=== PATIENT | male | born 1990 | race Caucasian/White ===

== ENCOUNTER 2018-09-19 19:24 | Emergency (ER) | payer BC ==
[2018-09-19] MEDS ORDERED: Sodium Chloride 0.9% 10 ML Syringe FLUSH PRN (19:50)
[2018-09-19] MEDS ORDERED: Ondansetron 4 MG/2 ML SDV IVPUSH ONE (19:50)
[2018-09-19] MEDS ORDERED: Sodium Chloride 0.9% 1,000 ML IV STA (19:50)
[2018-09-19] MEDS ORDERED: methylPREDNISolone Sodium Succinate 125 MG/2 ML SDV IVPUSH ONE (19:51)
[2018-09-19] MEDS ORDERED: HYDROmorphone 1 MG/ML Syringe IVPUSH ONE (19:51)
[2018-09-19] MEDS ORDERED: Sodium Chloride 0.9% 1,000 ML IV ONE (21:02)
--- NOTE | 2018-09-19 21:12 | EDM.PDOC ---
ED HPI GENERAL MEDICAL PROBLEM - General Chief Complaint: Gastrointestinal Problem Stated Complaint: possible dehydration Time Seen by Provider: 09/19/18 19:35 Source of Information: Reports: Patient, Family History Limitations: Reports: No Limitations - History of Present Illness INITIAL COMMENTS - FREE TEXT/NARRATIVE: The patient presents with abdominal pain, nausea, vomiting and diarrhea. He was recently diagnosed with ulcerative colitis. Two week ago he had a CT and last week he had a colonscopy. He said the contrast for the CT and bowel prep for the colonoscopy made things worse. He is on steroids but he feels he is dehydrated. He is trying to push fluids but he still has the diarrhea. He has a low grade temp and generalized abdominal pain. He has no chest pain or shortness of breath. He says he had a 20 pound weight loss the last 6 days. Onset: Gradual Duration: Week(s): Location: Reports: Abdomen Quality: Reports: Ache Severity: Moderate Improves with: Reports: None Worsens with: Reports: None Associated Symptoms: Reports: Fever/Chills, Nausea/Vomiting. Denies: Chest Pain , Cough, Headaches, Shortness of Breath - Related Data Allergies Allergy/AdvReac Type Severity Reaction Status Date / Time cefaclor Allergy Cannot Verified 09/19/18 19:37 Remember pneumococcal vaccine Allergy Redness Verified 09/19/18 19:37 Home Meds: Home Meds Budesonide [Entocort EC] 3 mg PO DAILY 09/19/18 [History] Ondansetron [Zofran ODT] 4 mg PO Q6H PRN #20 tab.dis 09/19/18 [Rx] Potassium Chloride 20 meq PO DAILY #30 tablet.er 09/19/18 [Rx] Past Medical History Gastrointestinal History: Reports: Other (See Below) Other Gastrointestinal History: ulcerative colitis - Past Surgical History GI Surgical History: Reports: Colonoscopy Social & Family History - Tobacco Use Smoking Status *Q: Former Smoker Used Tobacco, but Quit: Yes Month/Year Tobacco Last Used: September - Caffeine Use Caffeine Use: Reports: None - Recreational Drug Use Recreational Drug Use: No ED ROS GENERAL - Review of Systems Review Of Systems: See Below Constitutional: Reports: No Symptoms HEENT: Reports: No Symptoms Respiratory: Reports: No Symptoms Cardiovascular: Reports: No Symptoms Endocrine: Reports: No Symptoms GI/Abdominal: Reports: Abdominal Pain, Diarrhea, Nausea, Vomiting : Reports: No Symptoms Musculoskeletal: Reports: No Symptoms Skin: Reports: No Symptoms ED EXAM, GI/ABD - Physical Exam Exam: See Below Exam Limited By: No Limitations General Appearance: Alert, No Apparent Distress Ears: Normal External Exam Nose: Normal Inspection Head: Atraumatic, Normocephalic Neck: Normal Inspection Respiratory/Chest: No Respiratory Distress, Lungs Clear, Normal Breath Sounds Cardiovascular: Regular Rate, Rhythm, No Edema, No Murmur GI/Abdominal Exam: Soft, No Organomegaly, No Mass, Tender (Generalized tenderness) Back Exam: Normal Inspection Extremities: Normal Inspection Course - Vital Signs Last Recorded V/S: Last Vital Signs Temp 98.4 F 09/19/18 19:34 Pulse 105 H 09/19/18 19:34 Resp 16 09/19/18 19:34 BP 134/73 09/19/18 19:34 Pulse Ox 96 09/19/18 19:34 Orthostatic Blood Pressure [ 112/66 Standing] Orthostatic Blood Pressure [ 116/68 Supine] - Orders/Labs/Meds Orders: Active Orders 24 hr Category Date Time Status Peripheral IV Care [RC] . DIRECTED Care 09/19/18 19:50 Active Potassium Chloride [KCl 10 MEQ in Water 100 ML] 10 meq Med 09/19/18 21:15 Active Premix Bag 1 bag IV ASDIRECTED Sodium Chloride 0.9% [Saline Flush] Med 09/19/18 19:50 Active 10 ml FLUSH ASDIRECTED PRN ED Antiemetic Medication Reflex [OM.PC] Stat Oth 09/19/18 19:51 Ordered Peripheral IV Insertion Adult [OM.PC] Stat Oth 09/19/18 19:50 Ordered Medication Orders Potassium Chloride 10 meq/ (Premix) 100 mls @ 100 mls/hr IV ASDIRECTED DARLENE Last Admin: 09/19/18 21:15 Dose: 100 mls/hr Sodium Chloride (Saline Flush) 10 ml FLUSH ASDIRECTED PRN PRN Reason: Keep Vein Open Last Admin: 09/19/18 20:24 Dose: 10 ml Labs: Laboratory Tests 09/19/18 09/19/18 09/19/18 Range/Units 20:15 20:15 21:55 WBC 13.18 H (4.23-9.07) K/mm3 RBC 4.25 L (4.63-6.08) M/mm3 Hgb 12.9 L (13.7-17.5) gm/L Hct 36.5 L (40.1-51.0) % MCV 85.9 (79.0-92.2) fl MCH 30.4 (25.7-32.2) pg MCHC 35.3 (32.2-35.5) g/dl RDW Std Deviation 38.8 (35.1-43.9) fL Plt Count 410 H (163-337) K/mm3 MPV 8.3 L (9.4-12.3) fl Neut % (Auto) 64.5 (34.0-67.9) % Lymph % (Auto) 13.0 L (21.8-53.1) % [place] % (Auto) 19.2 H (5.3-12.2) % Eos % (Auto) 1.7 (0.8-7.0) Baso % (Auto) 0.2 (0.1-1.2) % Neut # (Auto) 8.49 H (1.78-5.38) K/mm3 Lymph # (Auto) 1.71 (1.32-3.57) K/mm3 [place] # (Auto) 2.53 H (0.30-0.82) K/mm3 Eos # (Auto) 0.23 (0.04-0.54) K/mm3 Baso # (Auto) 0.03 (0.01-0.08) K/mm3 Manual Slide Review Abnormal smear Sodium 132 L (136-145) mEq/L Potassium 2.8 L (3.5-5.1) mEq/L Chloride 93 L (98-107) mEq/L Carbon Dioxide 27 (21-32) mEq/L Anion Gap 14.8 (5-15) BUN 10 (7-18) mg/dL Creatinine 1.1 (0.7-1.3) mg/dL Est Cr Clr Drug Dosing 97.59 mL/min Estimated GFR (MDRD) > 60 (>60) mL/min BUN/Creatinine Ratio 9.1 L (14-18) Glucose 104 (74-106) mg/dL Calcium 8.6 (8.5-10.1) mg/dL Total Bilirubin 0.5 (0.2-1.0) mg/dL AST 24 (15-37) U/L ALT 30 (16-63) U/L Alkaline Phosphatase 63 (46-116) U/L C-Reactive Protein 5.2 H* (<1.0) mg/dL Total Protein 6.3 L (6.4-8.2) g/dl Albumin 2.3 L (3.4-5.0) g/dl Globulin 4.0 gm/dL Albumin/Globulin Ratio 0.6 L (1-2) Lipase 47 L (73-393) U/L Urine Color Yellow (Yellow) Urine Appearance Clear (Clear) Urine pH 6.5 (5.0-8.0) Ur Specific [place] 1.010 (1.005-1.030) Urine Protein Trace H (Negative) Urine Glucose (UA) Negative (Negative) Urine Ketones 2+ H (Negative) Urine Occult Blood 2+ H (Negative) Urine Nitrite Negative (Negative) Urine Bilirubin Negative (Negative) Urine Urobilinogen 0.2 (0.2-1.0) Ur Leukocyte Esterase Negative (Negative) Urine RBC 5-10 H (0-5) /hpf Urine WBC 0-5 (0-5) /hpf Ur Epithelial Cells 0-5 (0-5) /hpf Urine Bacteria Few (FEW) /hpf Urine Mucus Not seen (FEW) /hpf Meds: Medications Generic Name Dose Route Start Last Admin Trade Name Freq PRN Reason Stop Dose Admin Potassium Chloride 10 meq/ 100 mls @ 100 mls/hr 09/19/18 21:15 09/19/18 21:15 Premix IV 100 mls/hr ASDIRECTED DARLENE Administration Sodium Chloride 10 ml 09/19/18 19:50 09/19/18 20:24 Saline Flush FLUSH 10 ml ASDIRECTED PRN Administration Keep Vein Open Discontinued Medications Generic Name Dose Route Start Last Admin Trade Name Freq PRN Reason Stop Dose Admin Hydromorphone HCl 1 mg 09/19/18 19:51 09/19/18 20:21 Dilaudid IVPUSH 09/19/18 19:52 1 mg ONETIME ONE Administration Sodium Chloride 1,000 mls @ 1,000 mls/hr 09/19/18 19:50 09/19/18 20:24 Normal Saline IV 09/19/18 20:49 1,000 mls/hr .BOLUS STA Administration Sodium Chloride 1,000 mls @ 1,000 mls/hr 09/19/18 21:02 09/19/18 21:15 Normal Saline IV 09/19/18 22:01 1,000 mls/hr ONETIME ONE Administration Methylprednisolone Sodium Succinate 125 mg 09/19/18 19:51 09/19/18 20:24 Solu-Medrol IVPUSH 09/19/18 19:52 125 mg ONETIME ONE Administration Ondansetron HCl 4 mg 09/19/18 19:50 09/19/18 20:20 Zofran IVPUSH 09/19/18 19:51 4 mg ONETIME ONE Administration - Re-Assessments/Exams Free Text/Narrative Re-Assessment/Exam: 09/19/18 21:13 I ordered an IV NS 1L bolus, zofran 4mg IV, dilaudid 1mg IV, labs and UA. His WBC is elevated at 13.18. His Hgb is low at 12.9. His Na is low at 132. His K is low at 2.8. I ordered another liter of fluid and a potassium rider of 10meq. His lipase is low at 47. 09/19/18 22:48 His UA shows no UTI. He is dehydrated. I let the second liter go in. I will get him on some potassium and some zofran for nausea. Departure - Departure Time of Disposition: 22:50 Disposition: Home, Self-Care 01 Condition: Good Clinical Impression: Dehydration Ulcerative colitis Qualifiers: Ulcerative colitis location: unspecified ulcerative colitis location Digestive disease complication type: without complication Qualified Code(s): K51.90 - Ulcerative colitis, unspecified, without complications Nausea & vomiting Qualifiers: Vomiting type: unspecified Vomiting Intractability: non-intractable Qualified Code(s): R11.2 - Nausea with vomiting, unspecified Diarrhea Qualifiers: Diarrhea type: unspecified type Qualified Code(s): R19.7 - Diarrhea, unspecified - Discharge Information *PRESCRIPTION DRUG MONITORING PROGRAM REVIEWED*: Not Applicable *COPY OF PRESCRIPTION DRUG MONITORING REPORT IN PATIENT NIKITA: Not Applicable Prescriptions: Ondansetron [Zofran ODT] 4 mg PO Q6H PRN #20 tab.dis PRN Reason: Nausea\vomiting Potassium Chloride 20 meq PO DAILY #30 tablet.er Referrals: Ora Catalan NP [Primary Care Provider] - 1 Week Forms: ED Department Discharge Additional Instructions: Drink plenty of fluids. Take your medication as prescribed. Your potassium was low so take potassium 20meq daily. Take the zofran as needed for nausea and vomiting. Follow up with your doctor. Please return if you are worse. - My Orders Last 24 Hours: My Active Orders 09/19/18 19:50 Peripheral IV Care [RC] . DIRECTED Sodium Chloride 0.9% [Saline Flush] 10 ml FLUSH ASDIRECTED PRN Peripheral IV Insertion Adult [OM.PC] Stat 09/19/18 19:51 ED Antiemetic Medication Reflex [OM.PC] Stat 09/19/18 21:15 Potassium Chloride [KCl 10 MEQ in Water 100 ML] 10 meq Premix Bag 1 bag IV ASDIRECTED - Assessment/Plan Last 24 Hours: My Active Orders 09/19/18 19:50 Peripheral IV Care [RC] . DIRECTED Sodium Chloride 0.9% [Saline Flush] 10 ml FLUSH ASDIRECTED PRN Peripheral IV Insertion Adult [OM.PC] Stat 09/19/18 19:51 ED Antiemetic Medication Reflex [OM.PC] Stat 09/19/18 21:15 Potassium Chloride [KCl 10 MEQ in Water 100 ML] 10 meq Premix Bag 1 bag IV ASDIRECTED
[2018-09-19] MEDS ORDERED: Potassium Chloride 10 MEQ in Premix Bag 1 BAG IV SCH (21:15)
== END 2018-09-19 23:21 | disposition home or self-care (01) ==
LOC: JD.ED 19:24
DX: K51.90 Ulcerative colitis, unspecified, without complications (principal); E86.0 Dehydration; Z88.7 Allergy status to serum and vaccine; Z88.1 Allergy status to other antibiotic agents; Z87.891 Personal history of nicotine dependence
CPT/HCPCS: 36415; 80053; 81001; 83690; 85025; 86140; 96365; 96375; 99284; J1170; J2405; J2930; J3480; J7040

== ENCOUNTER → 2021-02-03 | Day surgery (SDC) | payer BC ==
[~2021-02-03] MED LIST: Acetaminophen 325 MG Tab PO SCH; HYDROmorphone 0.5 MG/0.5 ML Syringe IVPUSH PRN; Ketamine 500 mg/10 ML MDV ONE; Ketorolac 30 MG/ML SDV ONE; Lactated Ringers 1,000 ML IV SCH; Lactated Ringers 1,000 ML ONE; Lidocaine 1% 4 ML ONE; Lidocaine 1%/Sod Bicarbonate in NS 8.4% 1 ML Syringe IDERM PRN; Midazolam 1 MG/ML 2 ML SDV ONE; Morphine 8 MG, EPINEPHrine 0.3 MG, Cefuroxime 750 MG, Ketorolac 30 MG, Sodium Chloride ... PRN; Ondansetron 4 MG/2 ML SDV IVPUSH PRN; Ondansetron 4 MG/2 ML SDV ONE; Pregabalin 25 MG Cap PO SCH; Propofol 200 MG/20 ML SDV ONE; Sodium Chloride 0.9% 10 ML Syringe FLUSH PRN; Vancomycin 1 GM SDV ONE; ceFAZolin 1 GM Vial ONE; fentaNYL 100 MCG/2 ML SDV IVPUSH PRN; fentaNYL 100 MCG/2 ML SDV ONE; oxyCODONE 5 MG Tab PO STA; oxyCODONE ER 10 MG TAB.ER PO SCH
--- NOTE | 2021-02-03 09:10 | PCM.PREANE ---
Preanesthetic Assessment - Procedure Proposed Procedure: right total hip arthorplasty - Anesthesia/Transfusion/Family Hx Anesthesia History: Prior Anesthesia Without Reaction Family History of Anesthesia Reaction: No Transfusion History: Prior Transfusion Without Reaction Intubation History: Unknown - Review of Systems General: Other (sinus col ) Cardiovascular: No Symptoms Gastrointestinal: No Symptoms Neurological: No Symptoms, Other (TBI history problems with short term memory 2008) - Physical Assessment NPO Status Date: 02/02/21 NPO Status Time: 11:59 Vital Signs: Last Vital Signs Temp 36.6 C 02/03/21 08:05 Pulse 98 02/03/21 08:05 Resp 16 02/03/21 08:05 BP 146/71 H 02/03/21 08:05 Pulse Ox 96 02/03/21 08:05 Height: 1.75 m Weight: 104.4 kg ASA Class: 3 Mental Status: Alert & Oriented x3 Airway Class: Mallampati = 2 Dentition: Reports: Broken Tooth/Teeth, Missing Tooth/Teeth (very bad dentition, many teeth appear decayed, states that none are loose ) Thyro-Mental Finger Breadths: 3 Mouth Opening Finger Breadths: 3 ROM/Head Extension: Full Lungs: Clear to Auscultation, Normal Respiratory Effort Cardiovascular: Regular Rate, Regular Rhythm - Allergies Allergies/Adverse Reactions: Allergies Allergy/AdvReac Type Severity Reaction Status Date / Time cefaclor [From Ceclor] Allergy Rash Verified 02/03/21 08:22 - Blood Blood Available: No - Anesthesia Plan Pre-Op Medication Ordered: None - Acknowledgements Anesthesia Type Planned: Spinal Pt an Appropriate Candidate for the Planned Anesthesia: Yes Alternatives and Risks of Anesthesia Discussed w Pt/Guardian: Yes Pt/Guardian Understands and Agrees with Anesthesia Plan: Yes PreAnesthesia Questionnaire HEENT History: Reports: Impaired Vision Cardiovascular History: Reports: None Respiratory History: Reports: None Gastrointestinal History: Reports: GERD, Other (See Below) Other Gastrointestinal History: ulcerative colitis Genitourinary History: Reports: None ALGOLOGY TEACHER History: Reports: None Musculoskeletal History: Reports: None Neurological History: Reports: Seizure, Other (See Below) Other Neuro History: TBI Psychiatric History: Reports: None Endocrine/Metabolic History: Reports: None Hematologic History: Reports: None Immunologic History: Reports: None Oncologic (Cancer) History: Reports: None Dermatologic History: Reports: None - Infectious Disease History Infectious Disease History: Reports: None - Past Surgical History Head Surgeries/Procedures: Reports: None HEENT Surgical History: Reports: Tonsillectomy Cardiovascular Surgical History: Reports: None Respiratory Surgical History: Reports: None GI Surgical History: Reports: Colonoscopy, EGD Female Surgical History: Reports: None Male Surgical History: Reports: None Endocrine Surgical History: Reports: None Neurological Surgical History: Reports: None Musculoskeletal Surgical History: Reports: None Oncologic Surgical History: Reports: None Dermatological Surgical History: Reports: None - SUBSTANCE USE Tobacco Use Status *Q: Former Tobacco User Days Per Week of Alcohol Use: 3 Number of Drinks Per Day: 1 Total Drinks Per Week: 3 Recreational Drug Use History: No - HOME MEDS Home Medications: Home Meds Ascorbic Acid [Vitamin C] 500 mg PO DAILY 01/31/21 [History] Cholecalciferol (Vitamin D3) [Vitamin D3] 5,000 unit PO DAILY 01/31/21 [History] Famotidine [Pepcid] 20 mg PO DAILY 01/31/21 [History] Ferrous Sulfate [Iron] 325 mg PO BID 01/31/21 [History] Folic Acid 1 mg PO DAILY 01/31/21 [History] Methotrexate 25 mg PO WE 01/31/21 [History] Vedolizumab [Entyvio] 300 mg IV ASDIRECTED 01/31/21 [History] sulfaSALAzine 500 mg PO BID 01/31/21 [History] Aspirin [Aspirin EC] 325 mg PO BID #70 tab 02/03/21 [Rx] Cyclobenzaprine [Flexeril] 10 mg PO BID PRN #20 tab 02/03/21 [Rx] Hydrocodone/Acetaminophen [HYDROcodone-Acetaminophen 5-325 MG] 1 - 2 each PO Q4H PRN #30 tablet 02/03/21 [Rx] - CURRENT (IN HOUSE) MEDS Current Meds: Current Medications Acetaminophen (Acetaminophen 325 Mg Tab) 975 mg PO ONETIME DARLENE Stop: 02/03/21 13:00 Last Admin: 02/03/21 08:20 Dose: 975 mg Documented by: Morphine Sulfate 8 mg/Epinephrine HCl 0.3 mg/Cefuroxime Sodium 750 mg/Ketorolac Tromethamine 30 mg/Sodium Chloride 7.9 ml 0 mg .XX ASDIRECTED PRN PRN Reason: Pain Lactated Ringer's (Ringers, Lactated) 1,000 mls @ 125 mls/hr IV ASDIRECTED DARLENE Stop: 02/03/21 23:00 Last Admin: 02/03/21 08:21 Dose: 125 mls/hr Documented by: Lidocaine/Sodium Bicarbonate (Lidocaine 1%/Sod Bicarbonate In Ns 8.4% 1 Ml Syringe) 0.25 ml IDERM ONETIME PRN PRN Reason: Prior to IV Start Stop: 02/03/21 18:00 Oxycodone HCl (Oxycodone Er 10 Mg Tab.Er) 10 mg PO ONETIME DARLENE Stop: 02/03/21 13:00 Last Admin: 02/03/21 08:21 Dose: 10 mg Documented by: Pregabalin (Pregabalin 25 Mg Cap) 50 mg PO ONETIME DARLENE Stop: 02/03/21 13:00 Last Admin: 02/03/21 08:21 Dose: 50 mg Documented by: Sodium Chloride (Sodium Chloride 0.9% 10 Ml Syringe) 10 ml FLUSH ASDIRECTED PRN PRN Reason: Keep Vein Open Stop: 02/03/21 18:00
--- NOTE | 2021-02-03 12:04 | PCM.POSTAN ---
POST ANESTHESIA ASSESSMENT - MENTAL STATUS Mental Status: Alert - VITAL SIGNS Vital Signs: 1155 117/58 94 RA89 12 97.6 Last Vital Signs Temp 36.6 C 02/03/21 08:05 Pulse 98 02/03/21 08:05 Resp 16 02/03/21 08:05 BP 146/71 H 02/03/21 08:05 Pulse Ox 96 02/03/21 08:05 - RESPIRATORY Respiratory Status: Respiratory Rate WNL, Airway Patent, O2 Saturation Stable - CARDIOVASCULAR CV Status: Pulse Rate WNL, Blood Pressure Stable - GASTROINTESTINAL GI Status: No Symptoms - PAIN Pain Score: 0 - POST OP HYDRATION Hydration Status: Adequate & Stable
--- NOTE | 2021-02-03 13:53 | CR ---
Pelvis and right hip: AP view of the pelvis was obtained as well as crosstable lateral views of the right hip. Comparison: Prior right hip CT study of the 01/29/21. Right hip prosthesis is seen. Components are aligned. Small amount of soft tissue air is seen. Bony structures show nothing acute. Impression: 1. Satisfactory postoperative appearance of recently placed right hip prosthesis. Diagnostic code #2
--- NOTE | 2021-02-13 07:23 | PCM.OPNOTE ---
- General Post-Op/Procedure Note Date of Surgery/Procedure: 02/03/21 Operative Procedure(s): right total hip arthroplasty with lee violeta robotics Pre Op Diagnosis: right hip avascular necrosis with collapse Post-Op Diagnosis: Same Anesthesia Technique: Local, MAC, Spinal Primary Surgeon: Sebastian Jordan Anesthesia Provider: Cordelia Shine Linen Room Attendant: Alessandra Villalobos Linen Room Attendant: Judith Pan EBL in mLs: 400 Complications: None Condition: Good Free Text/Narrative:: 54 cup 28+0 MDM 4 stem
--- NOTE | 2021-02-17 11:13 | OR ---
DATE OF OPERATION: 02/03/2021 SURGEON: Sebastian Jordan MD OPERATION PERFORMED: Right total hip arthroplasty with Julia Juan robotics. PREOPERATIVE DIAGNOSIS: Right hip avascular necrosis with collapse. POSTOPERATIVE DIAGNOSIS: Right hip avascular necrosis with collapse. ANESTHESIA: Local MAC with spinal. ANESTHESIA PROVIDER: Cordelia Shine. ASSISTANTS: Alessandra Villalobos PA-C; and Judith Pan LPN. ESTIMATED BLOOD LOSS: 400 mL. COMPLICATIONS: None. CONDITION: Stable. IMPLANTS: 1. Julia size 54 mm solid Tritanium II acetabular cup. 2. Dixie size 28/42, +0 MDM components. 3. Julia size 4 Accolade II stem. DESCRIPTION OF PROCEDURE: The patient was identified in the preoperative holding area. Proper site was marked and identified by the surgeon. The patient was taken back to the operative theater where after adequate anesthesia, the patient was placed in a left lateral decubitus position. Axillary roll was placed. Pegs were then placed and well padded. The patient's gluteal fold was parallel to the floor. Right hip was then sterilely prepped and draped in the usual sterile fashion. OR time-out was performed. The patient received 2 g of IV Ancef. At this time, 3 small poke holes were placed on the ASIS, and 3.4 Schanz pins were then placed making sure that the array was down on the bone and the Dixie Juan robotic array was placed. A standard posterior incision was made and this was taken down to the IT band and gluteal fascia which was then incised along the incisional length. Charnley retractor was then placed. A checkpoint was then placed on the greater trochanter and hip-lengths were measured utilizing the technique for the Dixie Juan robotics. Takedown of short external rotators was done from the level of the piriformis down to the lesser trochanter. At this time, a capsulotomy was performed as well. Hip was then dislocated. Neck cut was completed and found to be adequate. Attention was turned to the acetabulum. Anterior and posterior acetabular retractors were placed. Circumferential removal of the pulvinar as well as labrum was done at this time. The checkpoint was then placed on the superior rim of the acetabulum. 15 points were then obtained intra-articular and extra-articular as well as the 3 points on the array on the pelvis. Once the plan was found to be adequate, the Julia Juan robotic arm was brought in with a 54 mm reamer. 54 mm reamer was then utilized until all green was removed from the Julia Juan robotic plan. There was a good bony bleeding bed. At this time, the 54 mm cup was then placed on the Dixie Juan robotic arm and 45 degrees of abduction and 20 degrees of anteversion was impacted into place and was found to have solid fixation. The MDM liner was then impacted into place. Attention was turned to the femur. Box chisel was used out laterally. Starter awl was placed down the canal. Starting with the 0 broach, I was able to broach up to a size 4 which was found to be rotationally and vertically stable. A 127-degree trial neck angle was placed along with 28, +0 MDM trial components. The hip was then relocated. The patient had adequate anabaptist of leg-lengths and was stable throughout range of motion. Bone hook was used to dislocate the hip. Trial implants were removed. The size 4 Accolade II stem was impacted into place along with 28/42, +0 MDM components. The hip was then relocated. #5 Ethibond suture was used for closure of the short external rotators and capsule. A periarticular injection was completed. 1 L pulse lavage irrigation with Ancef was irrigated through the hip along with 400 mL IrriSept irrigation. Topical tranexamic acid and vancomycin powder were applied. #2 barbed suture was used for closure of the IT band and gluteal fascia. 2-0 Vicryl was used subcutaneously and Prineo was used for skin closure. The patient tolerated the procedure well, was sent to PACU in stable condition. MMODAL /[id number]
== END | disposition home or self-care (01) ==
LOC: JD.SDS 07:59
PROVIDERS: ATTEND Orthopaedic Surgery
DX: M87.88 Other osteonecrosis, other site (principal); M16.11 Unilateral primary osteoarthritis, right hip; K21.9 Gastro-esophageal reflux disease without esophagitis; E55.9 Vitamin D deficiency, unspecified; R03.0 Elevated blood-pressure reading, without diagnosis of hypertension; Z79.899 Other long term (current) drug therapy; Z98.890 Other specified postprocedural states; Z87.891 Personal history of nicotine dependence; Z88.8 Allergy status to other drugs, medicaments and biological substances
CPT/HCPCS: 27130; 36415; 73501; 86850; 86900; 86901; 97116; 97161; A9270; C1713; C1776; J0171; J0690; J0697; J1885; J2250; J2270; J2370; J2405; J2704; J3010; J3370; J7120; 01214

== ENCOUNTER 2021-09-10 06:47 | Day surgery (SDC) | payer BC, OTHER ==
[~2021-09-10 06:47] MED LIST changes: -HYDROmorphone 0.5 MG/0.5 ML Syringe IVPUSH PRN; -Ketamine 500 mg/10 ML MDV ONE; -Ketorolac 30 MG/ML SDV ONE; -Lactated Ringers 1,000 ML ONE; -Lidocaine 1% 4 ML ONE; -Midazolam 1 MG/ML 2 ML SDV ONE; -Ondansetron 4 MG/2 ML SDV IVPUSH PRN; -Ondansetron 4 MG/2 ML SDV ONE; -Propofol 200 MG/20 ML SDV ONE; +Sodium Chloride 0.9% 10 ML Syringe FLUSH SCH; -Vancomycin 1 GM SDV ONE; -ceFAZolin 1 GM Vial ONE; -fentaNYL 100 MCG/2 ML SDV IVPUSH PRN; -fentaNYL 100 MCG/2 ML SDV ONE; -oxyCODONE 5 MG Tab PO STA
[2021-09-10] MEDS ORDERED: Vancomycin 1 GM SDV ONE (07:06)
[2021-09-10] MEDS ORDERED: Lactated Ringers 1,000 ML ONE ×2 (07:35→08:59)
[2021-09-10] MEDS ORDERED: Propofol 200 MG/20 ML SDV ONE ×3 (07:35→09:35)
[2021-09-10] MEDS ORDERED: ceFAZolin 1 GM Vial ONE (07:35)
[2021-09-10] MEDS ORDERED: fentaNYL 100 MCG/2 ML SDV ONE (07:35)
[2021-09-10] MEDS ORDERED: Midazolam 1 MG/ML 2 ML SDV ONE ×2 (07:35→08:09)
[2021-09-10] MEDS ORDERED: HYDROmorphone 0.5 MG/0.5 ML Syringe IVPUSH PRN (08:13)
[2021-09-10] MEDS ORDERED: Ondansetron 4 MG/2 ML SDV IVPUSH PRN (08:13)
[2021-09-10] MEDS ORDERED: fentaNYL 100 MCG/2 ML SDV IVPUSH PRN (08:13)
[2021-09-10] MEDS ORDERED: Dexamethasone 4 MG/ML 5 ML MDV ONE (08:27)
[2021-09-10] MEDS ORDERED: Phenylephrine 1% 10 MG/ML SDV ONE (08:29)
[2021-09-10] MEDS ORDERED: Ketorolac 30 MG/ML SDV ONE (08:32)
[2021-09-10] MEDS ORDERED: Ondansetron 4 MG/2 ML SDV ONE (08:32)
[2021-09-10] MEDS ORDERED: Acetaminophen/HYDROcodone 325-5 MG Tab PO PRN (09:43)
== END 2021-09-10 12:15 | disposition home or self-care (01) ==
LOC: JD.SDS 06:47
PROVIDERS: ATTEND Orthopaedic Surgery
DX: M16.12 Unilateral primary osteoarthritis, left hip (principal); M87.052 Idiopathic aseptic necrosis of left femur; K21.9 Gastro-esophageal reflux disease without esophagitis; I10 Essential (primary) hypertension; E78.5 Hyperlipidemia, unspecified; E55.9 Vitamin D deficiency, unspecified; H54.7 Unspecified visual loss; E66.9 Obesity, unspecified; F17.220 Nicotine dependence, chewing tobacco, uncomplicated; Z88.1 Allergy status to other antibiotic agents; Z79.899 Other long term (current) drug therapy
CPT/HCPCS: 0055T; 27130; 36415; 73501; 86850; 86900; 86901; 97110; 97161; A9270; C1713; C1776; J0171; J0690; J0697; J1100; J1885; J2250; J2270; J2370; J2405; J2704; J3010; J3370; J7120; 01214

== ENCOUNTER 2024-09-14 22:35 | Emergency (ER) | payer BC | END 2024-09-15 00:20 | disposition home or self-care (01) | LOC: JD.ED 22:35 | DX: S86.112A Strain of other muscle(s) and tendon(s) of posterior muscle group at lower leg level, left leg, initial encounter (principal); Z88.1 Allergy status to other antibiotic agents; Z79.899 Other long term (current) drug therapy; Z79.82 Long term (current) use of aspirin; Z86.16 Personal history of COVID-19; X50.0XXA Overexertion from strenuous movement or load, initial encounter; Y93.89 Activity, other specified | CPT/HCPCS: 99283 ==